=== PATIENT | male | born 1985 | race Caucasian/White ===

== ENCOUNTER 2018-11-15 10:17 | Emergency (ER) | payer OTHER ==
[2018-11-15 10:58] VITALS: BP 130/80; PULSE 81; RESP 16; TEMP 98; O2SAT 98
[2018-11-15] MEDS ORDERED: Tdap Vaccine 0.5 ml Vial (10-64 yrs) IM ONE ×2 (11:31→11:38)
--- NOTE | 2018-11-15 11:32 | C.PDOC ---
History Of Present Illness 33 y/o male presents to the ED for evaluation of laceration to the left 5th digit. States he was chopping vegetables and accidentally cut his finger near the distal aspect. Presents with 1 cm laceration. Of note patient is right hand dominant. No other injury. Tetanus is not up to date. Time Seen by Provider: 11/15/18 11:15 Chief Complaint (Nursing): Abnormal Skin Integrity History Per: Patient History/Exam Limitations: no limitations Onset/Duration Of Symptoms: Days Current Symptoms Are (Timing): Still Present Past Medical History Reviewed: Historical Data, Nursing Documentation, Vital Signs Vital Signs: Last Vital Signs Temp 98 F 11/15/18 10:25 Pulse 81 11/15/18 10:25 Resp 16 11/15/18 10:25 BP 130/80 11/15/18 10:25 Pulse Ox 98 11/15/18 10:25 - Medical History PMH: Asthma Family History: States: No Known Family Hx - Social History Hx Alcohol Use: Yes Hx Substance Use: No - Immunization History Hx Tetanus Toxoid Vaccination: Yes Hx Influenza Vaccination: No Hx Pneumococcal Vaccination: No Review Of Systems Constitutional: Negative for: Fever, Chills, Weakness Eyes: Negative for: Redness, Other (icterus) ENT: Negative for: Mouth Swelling Cardiovascular: Negative for: Chest Pain Respiratory: Negative for: Cough, Shortness of Breath Gastrointestinal: Negative for: Nausea, Vomiting, Diarrhea Genitourinary: Negative for: Dysuria, Hematuria Musculoskeletal: Negative for: Back Pain Skin: Positive for: Lesions (laceration to 5th digit). Negative for: Rash Neurological: Negative for: Weakness, Numbness, Dizziness Physical Exam - Physical Exam Appears: Well, Non-toxic, No Acute Distress Skin: Normal Color, Warm, No Rash Head: Atraumatic Eye(s): bilateral: Normal Inspection (no scleral icterus), PERRL, EOMI Nose: Normal Oral Mucosa: Moist Neck: Normal ROM, Supple Chest: Symmetrical Respiratory: No Accessory Muscle Use, Other (Normal inspiratory effort) Back: Other (Ambulating with steady upright gait) Extremity: Normal ROM (with full ROM of 5th digit), No Tenderness, Capillary Refill (less than 2 sec), No Swelling, Other (1 cm laceration to the distal aspect of left 5th digit, bleeding controlled) Pulses: Left Radial: Normal, Right Radial: Normal Neurological/Psych: Oriented x3, Normal Cranial Nerves ED Course And Treatment O2 Sat by Pulse Oximetry: 98 (RA) Pulse Ox Interpretation: Normal Medical Decision Making Medical Decision Making: Plan: Tetanus booster given in the ER. Dermabond applied. Patient advised to follow up with employee health. Disposition Counseled Patient/Family Regarding: Diagnosis, Need For Followup - Disposition Disposition: HOME/ ROUTINE Disposition Time: 11:36 Condition: IMPROVED Additional Instructions: Please follow up with employee health in 1-2 days. Instructions: Laceration Repair With Glue (DC) Forms: [employer] (Maltese), General Discharge Instructions - Clinical Impression Clinical Impression: Laceration of finger - PA / POLISHER HAND / Resident Statement MD/DO has reviewed & agrees with the documentation as recorded. - Scribe Statement The provider has reviewed the documentation as recorded by the Scriblorraine Martin All medical record entries made by the Suhaiblorraine were at my direction and personally dictated by me. I have reviewed the chart and agree that the record accurately reflects my personal performance of the history, physical exam, medical decision making, and the department course for this patient. I have also personally directed, reviewed, and agree with the discharge instructions and disposition.
== END 2018-11-15 11:52 | disposition home or self-care (01) ==
LOC: C.ER 10:17
DX: S61.217A Laceration without foreign body of left little finger without damage to nail, initial encounter (principal); W45.8XXA Other foreign body or object entering through skin, initial encounter; Z23 Encounter for immunization